=== PATIENT | male | born 1970 | race Caucasian/White ===

== ENCOUNTER 2022-01-31 18:30 | Inpatient (IN) ==
[2022-01-31] MEDS ORDERED: Isovue-370 500 ML BOTTLE IVP ONE (18:57)
[2022-01-31] MEDS ORDERED: Morphine Sulfate 2 MG/ML SYRINGE IVP ONE ×2 (19:18→23:21)
[2022-01-31 19:19] LABS: Basophils # 0.1 K/mcL (0.0-0.2); Basophils % 0.9 %; Eosinophils # 0.3 K/mcL (0.0-0.6); Eosinophils % 2.7 %; Hematocrit 34.1 % (37.5-50.1); Immature Granulocytes % 0.3 % (0-4); Lymphocytes # 2.4 K/mcL (0.6-4.6); Lymphocytes % 24.9 %; Mean Corpuscular HGB Conc 29.3 g/dL (31.6-35.5); Mean Corpuscular Hemoglobin 25.1 pg (28.0-33.3); Mean Corpuscular Volume 85.7 fL (83.0-100.0); Mean Platelet Volume 9.4 fL (9.4-12.4); Monocytes # 0.7 K/mcL (0.0-1.3); Monocytes % 7.6 %; Neutrophils # 6.2 K/mcL (1.6-8.9); Platelet Count 460 K/mcL (140-400); Red Blood Count 3.98 M/mcL (4.19-5.50); Red Cell Distribution Width 19.5 % (11.5-14.5); Segmented Neutrophils % 63.6 %; White Blood Count 9.7 K/mcL (4.3-11.1)
[2022-01-31 19:37] LABS: INR 1.1; Prothrombin Time 12.6 Seconds (9.4-12.1)
[2022-01-31 19:39] LABS: Alanine Aminotransferase 5 Units/L (7-52); Albumin 3.7 g/dL (3.5-5.7); Albumin/Globulin Ratio 0.9 (1.1-2.2); Alkaline Phosphatase 94 Units/L (34-104); Aspartate Amino Transferase 11 Units/L (13-39); BUN/Creatinine Ratio 24 (6-26); Bilirubin,Total 0.4 mg/dL (0.3-1.0); Blood Urea Nitrogen 12 mg/dL (6-20); Calcium 9.6 mg/dL (8.6-10.3); Carbon Dioxide 30 mEq/L (23-29); Chloride 94 mEq/L (98-107); Glucose 90 mg/dL (70-105); Osmolality,Calculated 275 (280-300); Potassium 3.9 mEq/L (3.5-5.1); Sodium 133 mEq/L (136-145); Total Protein 7.7 g/dL (6.4-8.9); eGFR For African Americans > 60 (> 60); eGFR For Non-African Americans > 60 (> 60)
[2022-01-31 19:40] LABS: Activated Partial Thrombo Time 36.4 Seconds (26.0-36.0)
[2022-01-31 20:25] LABS: Troponin I < 0.03 ng/mL (< 0.04)
[2022-01-31] MEDS ORDERED: Naloxone 0.4 MG/ML INJ IVP PRN (22:48)
[2022-01-31] MEDS ORDERED: Ondansetron 4 MG/2 ML VIAL IVP PRN (22:48)
[2022-01-31] MEDS ORDERED: Acetaminophen 325 MG TABLET PO PRN (22:48)
[2022-01-31] MEDS ORDERED: Melatonin 3 MG TABLET PO PRN (22:48)
[2022-01-31] MEDS ORDERED: 0.9 % Sodium Chloride 1,000 ML IVC ONE (23:14)
[2022-02-01] MEDS ORDERED: 0.9 % Sodium Chloride 1,000 ML IVC ONE (01:39)
[2022-02-01 03:30] LABS: Basophils # 0.1 K/mcL (0.0-0.2); Basophils % 0.8 %; Eosinophils # 0.2 K/mcL (0.0-0.6); Eosinophils % 2.8 %; Hematocrit 29.7 % (37.5-50.1); Hemoglobin 8.6 g/dL (12.9-16.9); Immature Granulocytes % 0.4 % (0-4); Lymphocytes # 2.1 K/mcL (0.6-4.6); Lymphocytes % 26.5 %; Mean Corpuscular Hemoglobin 25.1 pg (28.0-33.3); Mean Corpuscular Volume 86.6 fL (83.0-100.0); Mean Platelet Volume 9.3 fL (9.4-12.4); Monocytes # 0.7 K/mcL (0.0-1.3); Monocytes % 8.5 %; Neutrophils # 4.9 K/mcL (1.6-8.9); Platelet Count 343 K/mcL (140-400); Red Blood Count 3.43 M/mcL (4.19-5.50); Red Cell Distribution Width 19.6 % (11.5-14.5)
[2022-02-01 03:38] LABS: INR 1.2; Prothrombin Time 13.6 Seconds (9.4-12.1)
[2022-02-01 03:41] LABS: Activated Partial Thrombo Time 34.4 Seconds (26.0-36.0)
[2022-02-01 04:00] LABS: % Iron Saturation 8 % (20-55); Alanine Aminotransferase 4 Units/L (7-52); Albumin 3.1 g/dL (3.5-5.7); Alkaline Phosphatase 75 Units/L (34-104); Aspartate Amino Transferase 8 Units/L (13-39); BUN/Creatinine Ratio 16 (6-26); Bilirubin,Total 0.3 mg/dL (0.3-1.0); Blood Urea Nitrogen 9 mg/dL (6-20); Calcium 8.6 mg/dL (8.6-10.3); Carbon Dioxide 24 mEq/L (23-29); Chloride 104 mEq/L (98-107); Globulin 3.2 g/dL (2.4-3.5); Glucose 98 mg/dL (70-105); Iron 22 mcg/dL (65-175); Magnesium 1.7 mg/dL (1.6-2.6); Osmolality,Calculated 281 (280-300); Potassium 3.8 mEq/L (3.5-5.1); Sodium 136 mEq/L (136-145); Total Protein 6.3 g/dL (6.4-8.9); Transferrin 194 mg/dL (203-362); Troponin I < 0.03 ng/mL (< 0.04); eGFR For African Americans > 60 (> 60); eGFR For Non-African Americans > 60 (> 60)
[2022-02-01 04:18] LABS: Ferritin 135 ng/mL (20-250)
[2022-02-01 04:22] LABS: Folate 9.1 ng/mL (3.0-16.0)
[2022-02-01] MEDS ORDERED: Acetaminophen 325 MG TABLET PO PRN ×2 (08:24→10:43)
[2022-02-01] MEDS ORDERED: Gadolinium Contrast Agent (WT Based) IV PRN (09:28)
[2022-02-01] MEDS ORDERED: Isovue-370 500 ML BOTTLE IVP ONE (09:28)
[2022-02-01] MEDS ORDERED: Isovue-370 500 ML BOTTLE PO ONE (10:25)
[2022-02-01] MEDS ORDERED: Perflutren Lipid Microsphere 1.3 ML in 0.9 % Sodium Chloride 8.7 ML IVP PRN (10:37)
[2022-02-01 17:20] LABS: Hematocrit 34.6 % (37.5-50.1); Hemoglobin 9.9 g/dL (12.9-16.9)
[2022-02-01] MEDS ORDERED: *HR* HYDROmorphone (PF) 1 MG/ML SYRINGE IVP ONE (19:36)
[2022-02-02 05:28] LABS: Basophils # 0.1 K/mcL (0.0-0.2); Basophils % 0.8 %; Eosinophils # 0.3 K/mcL (0.0-0.6); Eosinophils % 3.7 %; Hematocrit 32.4 % (37.5-50.1); Hemoglobin 9.7 g/dL (12.9-16.9); Immature Granulocytes % 0.4 % (0-4); Lymphocytes % 26.2 %; Mean Corpuscular HGB Conc 29.9 g/dL (31.6-35.5); Mean Corpuscular Hemoglobin 25.5 pg (28.0-33.3); Mean Corpuscular Volume 85.3 fL (83.0-100.0); Mean Platelet Volume 9.3 fL (9.4-12.4); Monocytes # 0.7 K/mcL (0.0-1.3); Monocytes % 9.3 %; Neutrophils # 4.6 K/mcL (1.6-8.9); Platelet Count 384 K/mcL (140-400); Red Cell Distribution Width 19.4 % (11.5-14.5); Segmented Neutrophils % 59.6 %; White Blood Count 7.7 K/mcL (4.3-11.1)
[2022-02-02 05:33] LABS: INR 1.2; Prothrombin Time 13.4 Seconds (9.4-12.1)
[2022-02-02 06:02] LABS: BUN/Creatinine Ratio 14 (6-26); Blood Urea Nitrogen 7 mg/dL (6-20); Calcium 9.4 mg/dL (8.6-10.3); Carbon Dioxide 23 mEq/L (23-29); Chloride 100 mEq/L (98-107); Glucose 97 mg/dL (70-105); Magnesium 2.1 mg/dL (1.6-2.6); Osmolality,Calculated 278 (280-300); Phosphorous 3.9 mg/dL (2.7-4.5); Sodium 135 mEq/L (136-145); eGFR For African Americans > 60 (> 60); eGFR For Non-African Americans > 60 (> 60)
[2022-02-02] MEDS ORDERED: *HR* FentaNYL (PF) 100 MCG/2 ML VIAL ONE (11:33)
[2022-02-02] MEDS ORDERED: *HR* Midazolam HCl 2 MG/2 ML VIAL ONE (11:33)
[2022-02-02] MEDS ORDERED: Lidocaine -MPF 2% 5 ML VIAL ONE (11:35)
[2022-02-02] MEDS ORDERED: *HR* Succinylcholine 200 MG/10 ML VIAL IVP ONE (11:35)
[2022-02-02] MEDS ORDERED: *HR* Rocuronium Bromide 50 MG/5 ML VIAL ONE (11:35)
[2022-02-02] MEDS ORDERED: Ondansetron 4 MG/2 ML VIAL ONE (11:36)
[2022-02-02] MEDS ORDERED: *HR* Propofol 200 MG/20 ML VIAL IVP ONE (11:36)
[2022-02-02] MEDS ORDERED: Lidocaine HCL 4 ML Topical Solution (Laryng-O-Jet Kit Sterile Pak) TP ONE (11:38)
[2022-02-02] MEDS: *HR* EPINEPHrine 1 MG/10 ML SYRINGE INTRATRACH ONE ×2 (12:45→13:22)
[2022-02-02 19:38] VITALS: O2SAT 100
[2022-02-03 01:25] LABS: Basophils % 0.3 %; Eosinophils % 0.1 %; Hematocrit 31.5 % (37.5-50.1); Hemoglobin 9.5 g/dL (12.9-16.9); Immature Granulocytes % 0.3 % (0-4); Lymphocytes # 1.4 K/mcL (0.6-4.6); Lymphocytes % 19.1 %; Mean Corpuscular HGB Conc 30.2 g/dL (31.6-35.5); Mean Corpuscular Hemoglobin 25.5 pg (28.0-33.3); Mean Corpuscular Volume 84.5 fL (83.0-100.0); Mean Platelet Volume 9.5 fL (9.4-12.4); Monocytes # 0.4 K/mcL (0.0-1.3); Monocytes % 5.6 %; Neutrophils # 5.6 K/mcL (1.6-8.9); Platelet Count 453 K/mcL (140-400); Red Blood Count 3.73 M/mcL (4.19-5.50); Red Cell Distribution Width 18.8 % (11.5-14.5); Segmented Neutrophils % 74.6 %; White Blood Count 7.5 K/mcL (4.3-11.1)
[2022-02-03 01:39] LABS: BUN/Creatinine Ratio 28 (6-26); Blood Urea Nitrogen 18 mg/dL (6-20); Calcium 9.1 mg/dL (8.6-10.3); Carbon Dioxide 24 mEq/L (23-29); Chloride 98 mEq/L (98-107); Glucose 257 mg/dL (70-105); Magnesium 1.9 mg/dL (1.6-2.6); Osmolality,Calculated 283 (280-300); Phosphorous 3.1 mg/dL (2.7-4.5); Potassium 4.2 mEq/L (3.5-5.1); Sodium 131 mEq/L (136-145); eGFR For African Americans > 60 (> 60); eGFR For Non-African Americans > 60 (> 60)
[2022-02-03 06:35] VITALS: TEMP 97.9
[2022-02-03] MEDS ORDERED: Pantoprazole 40 MG VIAL IVP SCH (09:00)
[2022-02-03 10:15] VITALS: BP 111/75; PULSE 70
== END 2022-02-03 11:59 | disposition home or self-care (01) | DRG 121 ==
LOC: SUATTDRO → EMEROOARM 18:30 → 3NENU 18:30 → SUATTDRO 21:21 → 3NENU 21:24
PROVIDERS: ADMIT Internal Medicine; ATTEND Internal Medicine
PROC: ENDOBBX (2022-02-02 10:00)

== ENCOUNTER 2022-02-16 02:18 | Inpatient (IN) ==
[2022-02-16] MEDS ORDERED: Isovue-370 500 ML BOTTLE IVP ONE (02:52)
[2022-02-16] MEDS ORDERED: *HR* HYDROmorphone (PF) 1 MG/ML SYRINGE IVP ONE ×2 (02:55→04:05)
[2022-02-16 03:21] LABS: Basophils # 0.1 K/mcL (0.0-0.2); Basophils % 0.4 %; Eosinophils # 0.2 K/mcL (0.0-0.6); Eosinophils % 1.3 %; Hematocrit 34.1 % (37.5-50.1); Hemoglobin 10.4 g/dL (12.9-16.9); Immature Granulocytes % 0.5 % (0-4); Lymphocytes # 2.2 K/mcL (0.6-4.6); Lymphocytes % 15.3 %; Mean Corpuscular HGB Conc 30.5 g/dL (31.6-35.5); Mean Corpuscular Hemoglobin 25.9 pg (28.0-33.3); Mean Corpuscular Volume 84.8 fL (83.0-100.0); Mean Platelet Volume 9.2 fL (9.4-12.4); Monocytes # 1.1 K/mcL (0.0-1.3); Monocytes % 7.7 %; Neutrophils # 10.8 K/mcL (1.6-8.9); Platelet Count 394 K/mcL (140-400); Red Blood Count 4.02 M/mcL (4.19-5.50); Red Cell Distribution Width 18.4 % (11.5-14.5); Segmented Neutrophils % 74.8 %; White Blood Count 14.5 K/mcL (4.3-11.1)
[2022-02-16 03:25] LABS: VBG HCO3 25 mEq/L (21-27); VBG PCO2 37 mmHg (41-51); VBG PH 7.43 pH Units (7.32-7.42); VBG PO2 47 mmHg (25-50)
[2022-02-16 03:33] LABS: Alanine Aminotransferase 4 Units/L (7-52); Albumin 3.4 g/dL (3.5-5.7); Albumin/Globulin Ratio 0.9 (1.1-2.2); Alkaline Phosphatase 108 Units/L (34-104); Aspartate Amino Transferase 8 Units/L (13-39); BUN/Creatinine Ratio 19 (6-26); Bilirubin,Direct 0.1 mg/dL (0.0-0.2); Bilirubin,Indirect 0.3 mg/dL (0.0-1.0); Bilirubin,Total 0.4 mg/dL (0.3-1.0); Blood Urea Nitrogen 10 mg/dL (6-20); Calcium 9.3 mg/dL (8.6-10.3); Carbon Dioxide 25 mEq/L (23-29); Chloride 95 mEq/L (98-107); Globulin 3.9 g/dL (2.4-3.5); Glucose 117 mg/dL (70-105); Osmolality,Calculated 270 (280-300); Potassium 4.1 mEq/L (3.5-5.1); Sodium 130 mEq/L (136-145); Total Protein 7.3 g/dL (6.4-8.9); Troponin I 0.07 ng/mL (< 0.04); eGFR For African Americans > 60 (> 60); eGFR For Non-African Americans > 60 (> 60)
[2022-02-16 04:01] LABS: Adenovirus Not Detected (Not Detect); Bordetella Pertussis Not Detected (Not Detect); Chlamydophila pneumoniae Not Detected (Not Detect); Coronavirus 229E Not Detected (Not Detect); Coronavirus HKU1 Not Detected (Not Detect); Coronavirus NL63 Not Detected (Not Detect); Coronavirus OC43 Not Detected (Not Detect); Human Metapneumovirus Not Detected (Not Detect); Human Rhinovirus/Enterovirus Not Detected (Not Detect); Influenza A Subtype 2009 H1 Not Detected (Not Detect); Influenza B Not Detected (Not Detect); Mycoplasma pneumoniae Not Detected (Not Detect); Parainfluenza Virus 1 Not Detected (Not Detect); Parainfluenza Virus 2 Not Detected (Not Detect); Parainfluenza Virus 3 Not Detected (Not Detect); Parainfluenza Virus 4 Not Detected (Not Detect); Respiratory Syncytial Virus Not Detected (Not Detect); SARS-CoV-2 Not Detected (Not Detect)
[2022-02-16] MEDS ORDERED: Naloxone 0.4 MG/ML INJ IVP PRN (05:34)
[2022-02-16] MEDS ORDERED: Ondansetron 4 MG/2 ML VIAL IVP PRN (05:34)
[2022-02-16] MEDS: *HR* HYDROmorphone (PF) 1 MG/ML SYRINGE IVP PRN ×4 (06:37→20:14)
[2022-02-16 09:27] LABS: Bilirubin,Urine Negative (Negative); Blood,Urine Negative (Negative); Clarity,Urine Clear (Clear); Color,Urine Light-Yellow (Yellow); Glucose,Urine (UA) Normal (Normal); Ketones,Urine Negative (Negative); Leukocyte Esterase,Urine Negative (Negative); Nitrite,Urine Negative (Negative); PH,Urine 7.5 pH Units (5.0-8.0); Protein,Urine Trace mg/dL (Neg-Trace); Specific Gravity,Urine > 1.030 (1.010-1.025); Urobilinogen,Urine Normal (Normal)
[2022-02-16] MEDS: ALPRAZolam 0.25 MG TABLET PO PRN ×2 (10:47→20:16)
[2022-02-16] MEDS ORDERED: *HR* Metoprolol 5 MG/5 ML VIAL IVP ONE (11:15)
[2022-02-16 11:40] LABS: BUN/Creatinine Ratio 18 (6-26); Blood Urea Nitrogen 8 mg/dL (6-20); Calcium 9.4 mg/dL (8.6-10.3); Carbon Dioxide 24 mEq/L (23-29); Chloride 96 mEq/L (98-107); Glucose 119 mg/dL (70-105); Osmolality,Calculated 273 (280-300); Potassium 3.7 mEq/L (3.5-5.1); Sodium 132 mEq/L (136-145); eGFR For African Americans > 60 (> 60); eGFR For Non-African Americans > 60 (> 60)
[2022-02-16 11:52] LABS: Thyroid Stimulating Hormone 0.714 mcIU/mL (0.340-5.600)
[2022-02-16] MEDS: *HR* OxyCODONE/APAP 10/325 TABLET PO PRN ×3 (12:58→22:20)
[2022-02-16] MEDS ORDERED: *HR* Enoxaparin 40 MG/0.4 ML SYRINGE SQ SCH (13:29)
[2022-02-17] MEDS: *HR* HYDROmorphone (PF) 1 MG/ML SYRINGE IVP PRN ×6 (00:58→23:00)
[2022-02-17 01:11] LABS: Basophils # 0.1 K/mcL (0.0-0.2); Basophils % 0.6 %; Eosinophils # 0.2 K/mcL (0.0-0.6); Eosinophils % 1.9 %; Hematocrit 35.7 % (37.5-50.1); Hemoglobin 10.8 g/dL (12.9-16.9); Immature Granulocytes % 0.4 % (0-4); Lymphocytes # 2.5 K/mcL (0.6-4.6); Mean Corpuscular HGB Conc 30.3 g/dL (31.6-35.5); Mean Corpuscular Hemoglobin 25.5 pg (28.0-33.3); Mean Corpuscular Volume 84.4 fL (83.0-100.0); Mean Platelet Volume 9.1 fL (9.4-12.4); Monocytes # 1.1 K/mcL (0.0-1.3); Monocytes % 9.2 %; Neutrophils # 7.5 K/mcL (1.6-8.9); Platelet Count 424 K/mcL (140-400); Red Blood Count 4.23 M/mcL (4.19-5.50); Red Cell Distribution Width 18.4 % (11.5-14.5); Segmented Neutrophils % 65.9 %; White Blood Count 11.4 K/mcL (4.3-11.1)
[2022-02-17 01:30] LABS: BUN/Creatinine Ratio 28 (6-26); Blood Urea Nitrogen 13 mg/dL (6-20); C-Reactive Protein 122 mg/L (Less than 10); Calcium 9.5 mg/dL (8.6-10.3); Carbon Dioxide 24 mEq/L (23-29); Chloride 99 mEq/L (98-107); Glucose 118 mg/dL (70-105); Osmolality,Calculated 275 (280-300); Potassium 4.1 mEq/L (3.5-5.1); Sodium 132 mEq/L (136-145); eGFR For African Americans > 60 (> 60); eGFR For Non-African Americans > 60 (> 60)
[2022-02-17] MEDS: *HR* OxyCODONE/APAP 10/325 TABLET PO PRN ×5 (02:27→21:10)
[2022-02-17] MEDS: ALPRAZolam 0.25 MG TABLET PO PRN ×2 (06:22→20:03)
[2022-02-17] MEDS: Nicotine 21 MG PATCH.TD24 TD SCH (12:07)
[2022-02-17] MEDS: *HR* Enoxaparin 40 MG/0.4 ML SYRINGE SQ SCH (15:49)
[2022-02-17] MEDS: Melatonin 3 MG TABLET PO PRN (23:00)
[2022-02-18 00:34] LABS: Basophils # 0.1 K/mcL (0.0-0.2); Basophils % 0.5 %; Eosinophils # 0.2 K/mcL (0.0-0.6); Eosinophils % 1.8 %; Hematocrit 33.6 % (37.5-50.1); Hemoglobin 10.3 g/dL (12.9-16.9); Immature Granulocytes % 0.5 % (0-4); Lymphocytes # 1.5 K/mcL (0.6-4.6); Lymphocytes % 12.8 %; Mean Corpuscular HGB Conc 30.7 g/dL (31.6-35.5); Mean Corpuscular Hemoglobin 25.8 pg (28.0-33.3); Mean Corpuscular Volume 84.2 fL (83.0-100.0); Mean Platelet Volume 9.1 fL (9.4-12.4); Monocytes # 0.9 K/mcL (0.0-1.3); Monocytes % 7.7 %; Neutrophils # 8.9 K/mcL (1.6-8.9); Platelet Count 392 K/mcL (140-400); Red Blood Count 3.99 M/mcL (4.19-5.50); Segmented Neutrophils % 76.7 %; White Blood Count 11.6 K/mcL (4.3-11.1)
[2022-02-18 00:44] LABS: BUN/Creatinine Ratio 17 (6-26); Blood Urea Nitrogen 8 mg/dL (6-20); Calcium 9.5 mg/dL (8.6-10.3); Carbon Dioxide 23 mEq/L (23-29); Chloride 99 mEq/L (98-107); Glucose 117 mg/dL (70-105); Osmolality,Calculated 271 (280-300); Potassium 4.1 mEq/L (3.5-5.1); Sodium 131 mEq/L (136-145); eGFR For African Americans > 60 (> 60); eGFR For Non-African Americans > 60 (> 60)
[2022-02-18] MEDS: *HR* OxyCODONE/APAP 10/325 TABLET PO PRN ×5 (01:13→23:21)
[2022-02-18] MEDS: *HR* HYDROmorphone (PF) 1 MG/ML SYRINGE IVP PRN ×3 (02:57→18:44)
[2022-02-18] MEDS: Nicotine 21 MG PATCH.TD24 TD SCH (08:37)
[2022-02-18] MEDS ORDERED: *HR* Metoprolol 5 MG/5 ML VIAL IVP ONE (11:02)
[2022-02-18] MEDS: Morphine Sulfate ER (12 HR) 30 MG TABLET.ER PO SCH ×2 (11:46→20:27)
[2022-02-18] MEDS: *HR* Enoxaparin 40 MG/0.4 ML SYRINGE SQ SCH (15:35)
[2022-02-18] MEDS: Melatonin 3 MG TABLET PO PRN (20:27)
[2022-02-18] MEDS: ALPRAZolam 0.25 MG TABLET PO PRN (21:57)
[2022-02-19 03:14] LABS: Basophils # 0.1 K/mcL (0.0-0.2); Basophils % 0.5 %; Eosinophils # 0.3 K/mcL (0.0-0.6); Eosinophils % 2.7 %; Hematocrit 34.5 % (37.5-50.1); Hemoglobin 10.5 g/dL (12.9-16.9); Immature Granulocytes % 0.4 % (0-4); Lymphocytes # 2.1 K/mcL (0.6-4.6); Lymphocytes % 18.4 %; Mean Corpuscular HGB Conc 30.4 g/dL (31.6-35.5); Mean Corpuscular Hemoglobin 25.5 pg (28.0-33.3); Mean Corpuscular Volume 83.7 fL (83.0-100.0); Mean Platelet Volume 9.3 fL (9.4-12.4); Monocytes # 1.1 K/mcL (0.0-1.3); Monocytes % 9.7 %; Platelet Count 393 K/mcL (140-400); Red Blood Count 4.12 M/mcL (4.19-5.50); Red Cell Distribution Width 17.8 % (11.5-14.5); Segmented Neutrophils % 68.3 %; White Blood Count 11.7 K/mcL (4.3-11.1)
[2022-02-19 03:31] LABS: BUN/Creatinine Ratio 23 (6-26); Blood Urea Nitrogen 11 mg/dL (6-20); Calcium 10.2 mg/dL (8.6-10.3); Carbon Dioxide 26 mEq/L (23-29); Chloride 97 mEq/L (98-107); Glucose 116 mg/dL (70-105); Osmolality,Calculated 274 (280-300); Potassium 3.9 mEq/L (3.5-5.1); Sodium 132 mEq/L (136-145); eGFR For African Americans > 60 (> 60); eGFR For Non-African Americans > 60 (> 60)
[2022-02-19] MEDS: *HR* HYDROmorphone (PF) 1 MG/ML SYRINGE IVP PRN (04:02)
[2022-02-19] MEDS: Morphine Sulfate ER (12 HR) 30 MG TABLET.ER PO SCH (05:42)
[2022-02-19 06:12] VITALS: TEMP 98.1
[2022-02-19] MEDS: Nicotine 21 MG PATCH.TD24 TD SCH (08:33)
[2022-02-19] MEDS: *HR* OxyCODONE/APAP 10/325 TABLET PO PRN ×2 (08:35→12:40)
[2022-02-19 10:47] VITALS: BP 95/54; PULSE 89; O2SAT 93
[2022-02-19] MEDS: ALPRAZolam 0.25 MG TABLET PO PRN (11:33)
== END 2022-02-19 14:57 | disposition home or self-care (01) | DRG 136 ==
LOC: 2NENU 02:18 → EMEROOARM 02:18 → SUATTDRO 05:17 → 2NENU 06:06 → SUATTDRO 02-17 17:53
PROVIDERS: ADMIT Internal Medicine; ATTEND Hospitalist

== ENCOUNTER 2022-02-22 13:13 | Inpatient (IN) ==
[2022-02-22] MEDS ORDERED: Naloxone 0.4 MG/ML INJ IVP PRN (20:47)
[2022-02-22] MEDS ORDERED: Ondansetron 4 MG/2 ML VIAL IVP PRN (20:47)
[2022-02-22] MEDS ORDERED: 0.9 % Sodium Chloride 1,000 ML IVC SCH (21:00)
[2022-02-22] MEDS ORDERED: ALPRAZolam 0.25 MG TABLET PO PRN (23:14)
[2022-02-23] MEDS: Morphine Sulfate 2 MG/ML SYRINGE IVP PRN ×2 (03:03→07:03)
[2022-02-23 03:35] LABS: INR 1.3; Prothrombin Time 14.1 Seconds (9.4-12.1)
[2022-02-23 03:37] LABS: Activated Partial Thrombo Time 29.4 Seconds (26.0-36.0)
[2022-02-23 07:02] LABS: Hematocrit 33.8 % (37.5-50.1); Hemoglobin 10.2 g/dL (12.9-16.9); Mean Corpuscular HGB Conc 30.2 g/dL (31.6-35.5); Mean Corpuscular Hemoglobin 25.8 pg (28.0-33.3); Mean Corpuscular Volume 85.4 fL (83.0-100.0); Platelet Count 404 K/mcL (140-400); Red Blood Count 3.96 M/mcL (4.19-5.50); Red Cell Distribution Width 17.2 % (11.5-14.5)
[2022-02-23 07:36] LABS: White Blood Count 20.4 K/mcL (4.3-11.1)
[2022-02-23] MEDS ORDERED: *HR* LORazepam 0.5 MG TABLET PO PRN (08:47)
[2022-02-23] MEDS ORDERED: Acetaminophen 650 MG RECTAL SUPP RC PRN (08:49)
[2022-02-23] MEDS ORDERED: Acetaminophen 325 MG TABLET PO PRN (09:23)
[2022-02-23] MEDS ORDERED: Morphine Sulfate 2 MG/ML SYRINGE IVP PRN (09:26)
[2022-02-23] MEDS ORDERED: Morphine Sulfate ER (12 HR) 30 MG TABLET.ER PO SCH ×2 (10:00→21:00)
[2022-02-23] MEDS ORDERED: *HR* Metoprolol 5 MG/5 ML VIAL IVP PRN (10:07)
[2022-02-23] MEDS: Piperacillin/Tazobactam 3.375 GM in 0.9 % Sodium Chloride Mini Bag 100 ML IVPB SCH ×2 (10:49→17:12)
[2022-02-23] MEDS ORDERED: 0.9 % Sodium Chloride 500 ML IVC ONE (14:12)
[2022-02-23] MEDS: 0.9 % Sodium Chloride 1,000 ML IVC SCH (15:16)
[2022-02-23] MEDS: *HR* OxyCODONE/APAP 10/325 TABLET PO PRN (17:12)
[2022-02-23 23:16] LABS: BUN/Creatinine Ratio 32 (6-26); Blood Urea Nitrogen 20 mg/dL (6-20); Calcium 7.7 mg/dL (8.6-10.3); Carbon Dioxide 21 mEq/L (23-29); Chloride 103 mEq/L (98-107); Glucose 140 mg/dL (70-105); Osmolality,Calculated 281 (280-300); Potassium 3.3 mEq/L (3.5-5.1); Sodium 133 mEq/L (136-145); eGFR For African Americans > 60 (> 60); eGFR For Non-African Americans > 60 (> 60)
[2022-02-24] MEDS: Piperacillin/Tazobactam 3.375 GM in 0.9 % Sodium Chloride Mini Bag 100 ML IVPB SCH ×3 (02:00→16:33)
[2022-02-24] MEDS: Famotidine 20 MG/2 ML VIAL IVP SCH ×2 (06:00→16:32)
[2022-02-24 09:29] LABS: Hematocrit 28.4 % (37.5-50.1); Hemoglobin 8.7 g/dL (12.9-16.9); Lymphocytes # 0.7 K/mcL (0.6-4.6); Mean Corpuscular HGB Conc 30.6 g/dL (31.6-35.5); Mean Corpuscular Hemoglobin 25.7 pg (28.0-33.3); Mean Platelet Volume 10.7 fL (9.4-12.4); Monocytes # 0.1 K/mcL (0.0-1.3); Platelet Count 261 K/mcL (140-400); Red Blood Count 3.38 M/mcL (4.19-5.50); Red Cell Distribution Width 17.2 % (11.5-14.5); White Blood Count 13.8 K/mcL (4.3-11.1)
[2022-02-24 09:41] LABS: Alanine Aminotransferase 10 Units/L (7-52); Albumin 2.7 g/dL (3.5-5.7); Albumin/Globulin Ratio 0.8 (1.1-2.2); Alkaline Phosphatase 144 Units/L (34-104); Aspartate Amino Transferase 14 Units/L (13-39); BUN/Creatinine Ratio 29 (6-26); Bilirubin,Total 0.5 mg/dL (0.3-1.0); Blood Urea Nitrogen 15 mg/dL (6-20); Calcium 8.4 mg/dL (8.6-10.3); Carbon Dioxide 23 mEq/L (23-29); Chloride 102 mEq/L (98-107); Globulin 3.5 g/dL (2.4-3.5); Glucose 130 mg/dL (70-105); Osmolality,Calculated 279 (280-300); Potassium 3.5 mEq/L (3.5-5.1); Sodium 133 mEq/L (136-145); Total Protein 6.2 g/dL (6.4-8.9); eGFR For African Americans > 60 (> 60); eGFR For Non-African Americans > 60 (> 60)
[2022-02-24 09:58] LABS: Neutrophils # 12.8 K/mcL (1.6-8.9); Platelet Estimate Normal (Normal)
[2022-02-24] MEDS: *HR* Enoxaparin 40 MG/0.4 ML SYRINGE SQ SCH (10:01)
[2022-02-24] MEDS: *HR* OxyCODONE/APAP 10/325 TABLET PO PRN ×3 (10:20→18:48)
[2022-02-24] MEDS: Morphine Sulfate ER (12 HR) 30 MG TABLET.ER PO SCH (12:19)
[2022-02-24] MEDS ORDERED: Albumin 25% 25gram/100mL 25 GM/100 ML IV.SOLN IVPB ONE (19:52)
[2022-02-24] MEDS: Mirtazapine 15 MG TABLET PO SCH (20:51)
[2022-02-24] MEDS: ALPRAZolam 0.25 MG TABLET PO PRN (20:51)
[2022-02-25] MEDS: Morphine Sulfate ER (12 HR) 30 MG TABLET.ER PO SCH ×3 (00:26→23:15)
[2022-02-25] MEDS: Piperacillin/Tazobactam 3.375 GM in 0.9 % Sodium Chloride Mini Bag 100 ML IVPB SCH ×5 (00:26→23:14)
[2022-02-25] MEDS: 0.9 % Sodium Chloride 1,000 ML IVC SCH ×3 (01:39→20:17)
[2022-02-25] MEDS: Famotidine 20 MG/2 ML VIAL IVP SCH (04:56)
[2022-02-25] MEDS: *HR* Enoxaparin 40 MG/0.4 ML SYRINGE SQ SCH (04:57)
[2022-02-25] MEDS: *HR* OxyCODONE/APAP 10/325 TABLET PO PRN ×2 (08:34→20:21)
[2022-02-25] MEDS: ALPRAZolam 0.25 MG TABLET PO PRN ×2 (09:36→20:22)
[2022-02-25 09:51] LABS: Hematocrit 31.8 % (37.5-50.1); Hemoglobin 9.5 g/dL (12.9-16.9); Mean Corpuscular HGB Conc 29.9 g/dL (31.6-35.5); Mean Corpuscular Hemoglobin 25.5 pg (28.0-33.3); Mean Corpuscular Volume 85.3 fL (83.0-100.0); Mean Platelet Volume 11.7 fL (9.4-12.4); Platelet Count 289 K/mcL (140-400); Red Blood Count 3.73 M/mcL (4.19-5.50); White Blood Count 9.4 K/mcL (4.3-11.1)
[2022-02-25 10:23] LABS: Lymphocytes # 0.6 K/mcL (0.6-4.6); Monocytes # 0.2 K/mcL (0.0-1.3); Neutrophils # 8.5 K/mcL (1.6-8.9); Platelet Estimate Normal (Normal)
[2022-02-25 11:09] LABS: Alanine Aminotransferase 7 Units/L (7-52); Albumin 2.7 g/dL (3.5-5.7); Albumin/Globulin Ratio 0.7 (1.1-2.2); Alkaline Phosphatase 121 Units/L (34-104); Aspartate Amino Transferase 8 Units/L (13-39); BUN/Creatinine Ratio 22 (6-26); Bilirubin,Total 0.6 mg/dL (0.3-1.0); Blood Urea Nitrogen 9 mg/dL (6-20); Calcium 8.5 mg/dL (8.6-10.3); Carbon Dioxide 23 mEq/L (23-29); Chloride 99 mEq/L (98-107); Globulin 3.8 g/dL (2.4-3.5); Glucose 119 mg/dL (70-105); Osmolality,Calculated 276 (280-300); Sodium 133 mEq/L (136-145); Total Protein 6.5 g/dL (6.4-8.9); eGFR For African Americans > 60 (> 60); eGFR For Non-African Americans > 60 (> 60)
[2022-02-25] MEDS ORDERED: Albumin 25% 25gram/100mL 25 GM/100 ML IV.SOLN IVPB ONE (12:29)
[2022-02-25] MEDS ORDERED: Isovue-370 500 ML BOTTLE IVP ONE (15:30)
[2022-02-25] MEDS: Mirtazapine 15 MG TABLET PO SCH (20:21)
[2022-02-25 20:39] LABS: Bilirubin,Urine Negative (Negative); Blood,Urine Small (Negative); Clarity,Urine Clear (Clear); Color,Urine Yellow (Yellow); Glucose,Urine (UA) Normal (Normal); Ketones,Urine Negative (Negative); Leukocyte Esterase,Urine Negative (Negative); Mucus,Urine Few per lpf (None-Few); Nitrite,Urine Negative (Negative); Protein,Urine 100 mg/dL (Neg-Trace); Specific Gravity,Urine > 1.030 (1.010-1.025); Urobilinogen,Urine Normal (Normal)
[2022-02-26] MEDS: *HR* OxyCODONE/APAP 10/325 TABLET PO PRN ×3 (02:37→16:04)
[2022-02-26 04:40] LABS: Eosinophils # 0.1 K/mcL (0.0-0.6); Hematocrit 31.4 % (37.5-50.1); Hemoglobin 9.3 g/dL (12.9-16.9); Mean Corpuscular HGB Conc 29.6 g/dL (31.6-35.5); Mean Corpuscular Hemoglobin 25.2 pg (28.0-33.3); Mean Corpuscular Volume 85.1 fL (83.0-100.0); Mean Platelet Volume 10.3 fL (9.4-12.4); Platelet Count 265 K/mcL (140-400); Red Blood Count 3.69 M/mcL (4.19-5.50); Red Cell Distribution Width 17.1 % (11.5-14.5); White Blood Count 6.1 K/mcL (4.3-11.1)
[2022-02-26 05:07] LABS: Lymphocytes # 0.4 K/mcL (0.6-4.6); Neutrophils # 5.6 K/mcL (1.6-8.9)
[2022-02-26 05:08] LABS: Platelet Estimate Normal (Normal)
[2022-02-26] MEDS: *HR* Enoxaparin 40 MG/0.4 ML SYRINGE SQ SCH (05:36)
[2022-02-26 05:39] LABS: Alanine Aminotransferase 13 Units/L (7-52); Albumin 2.6 g/dL (3.5-5.7); Albumin/Globulin Ratio 0.7 (1.1-2.2); Alkaline Phosphatase 368 Units/L (34-104); Aspartate Amino Transferase 45 Units/L (13-39); BUN/Creatinine Ratio 30 (6-26); Bilirubin,Total 1.2 mg/dL (0.3-1.0); Blood Urea Nitrogen 13 mg/dL (6-20); Calcium 8.5 mg/dL (8.6-10.3); Carbon Dioxide 24 mEq/L (23-29); Chloride 101 mEq/L (98-107); Globulin 3.5 g/dL (2.4-3.5); Glucose 118 mg/dL (70-105); Magnesium 1.8 mg/dL (1.6-2.6); Osmolality,Calculated 279 (280-300); Phosphorous 2.3 mg/dL (2.7-4.5); Potassium 3.3 mEq/L (3.5-5.1); Sodium 134 mEq/L (136-145); Total Protein 6.1 g/dL (6.4-8.9); eGFR For African Americans > 60 (> 60); eGFR For Non-African Americans > 60 (> 60)
[2022-02-26] MEDS: Piperacillin/Tazobactam 3.375 GM in 0.9 % Sodium Chloride Mini Bag 100 ML IVPB SCH ×2 (08:54→16:04)
[2022-02-26] MEDS: Morphine Sulfate ER (12 HR) 30 MG TABLET.ER PO SCH (14:40)
[2022-02-26 18:25] VITALS: O2SAT 90
[2022-02-26 19:09] VITALS: BP 100/62; PULSE 61; TEMP 99
== END 2022-02-26 20:37 | disposition left against medical advice (07) | DRG 136 ==
LOC: 3ANU → SUATTDRO 19:49
PROVIDERS: ADMIT Internal Medicine; ATTEND Family Medicine